=== PATIENT | female | born 1965 | race Caucasian/White ===

== ENCOUNTER → 2021-07-14 | Outpatient (CLI) | payer OTHER ==
[~2021-07-14] MED LIST: REGADENOSON 0.4 MG/5 ML PF SYG IVP SCH
== END | disposition home or self-care (01) ==
LOC: SHCH 08:20 → EDUNIT# 08:30
PROVIDERS: ATTEND Internal Medicine
DX: R06.02 Shortness of breath (principal); R07.9 Chest pain, unspecified
CPT/HCPCS: 78452; 93017; 96374; A9500 ×2; J2785

== ENCOUNTER 2021-09-22 05:53 | Day surgery (SDC) | payer OTHER ==
[2021-09-18 14:43] LABS: BASOPHILS % (AUTO) 0.5 % (0.0-5.0); EOSINOPHILS % (AUTO) 2.6 % (0.0-8.0); HEMATOCRIT 38.9 % (36-48); LYMPHOCYTES % (AUTO) 27.6 % (21.0-51.0); MEAN CORPUSCULAR HEMOGLOBIN 28.6 pg (27.0-33.0); MEAN CORPUSCULAR HGB CONC 31.4 g/dL (32.0-36.0); MEAN CORPUSCULAR VOLUME 91.1 fL (79-99); MONOCYTES % (AUTO) 7.9 % (3.0-13.0); NEUTROPHILS % (AUTO) 61.2 % (40.0-77.0); PLATELET COUNT (AUTO) 322 K/uL (130-400); RED BLOOD CELL COUNT(AUTO) 4.27 MIL/uL (4.00-5.50); RED CELL DISTRIBUTION WIDTH 14.8 % (11.0-15.5); WHITE BLOOD COUNT (AUTO) 9.4 K/uL (4.8-10.8)
[2021-09-18 14:52] LABS: POTASSIUM 3.4 mmol/L (3.5-5.1)
[2021-09-18 14:55] LABS: APPEARANCE,URINE CLEAR (CLEAR); BILIRUBIN,URINE NEGATIVE (NEGATIVE); COLOR,URINE YELLOW (YELLOW); GLUCOSE, URINE (UA) NEGATIVE (NEGATIVE); KETONES,URINE NEGATIVE (NEGATIVE); LEUKOCYTE ESTERASE ,URINE NEGATIVE (NEGATIVE); NITRATE,URINE NEGATIVE (NEGATIVE); OCCULT BLOOD,URINE SMALL (NEGATIVE); PROTEIN,URINE NEGATIVE (NEGATIVE); UROBILINOGEN,URINE 0.2 mg/dL (0.2-1.0)
[2021-09-18 14:55] LABS: INR 1.02 (0.85-1.15); PROTHROMBIN TIME 11.1 SEC (9.6-11.6)
[2021-09-18 14:56] LABS: PARTIAL THROMBOPLASTIN TIME 26.9 SEC (26.3-35.5)
[2021-09-19 11:20] VITALS: BP 119/54
[2021-09-22] VITALS (10 sets, daily range): BP systolic 119–136; BP diastolic 67–84
[~2021-09-22] VITALS: Ht 165.1 cm; Wt 97.1 kg
[~2021-09-22 05:53] MED LIST changes: +AEC81 PO; +ATOR20TA65 PO; +ESOM40CA PO; +LANS30CA53 PO; +METO-391 PO; -REGADENOSON 0.4 MG/5 ML PF SYG IVP SCH; +VALS1TAB77 PO
[2021-09-22] MEDS ORDERED: 0.9%NACL 1000ML 1,000 ML IV ONE (06:11)
[2021-09-22] MEDS ORDERED: IOHEXOL 350 MG/ML 100ML INFUS..BTL IV ONE (07:19)
[2021-09-22] MEDS ORDERED: NITROGLYCERIN 50MG VIAL ONE (07:19)
[2021-09-22] MEDS ORDERED: MIDAZOLAM HCL 1 MG/ML 2ML VIAL ONE (07:19)
[2021-09-22] MEDS ORDERED: HEPARIN 10,000 UNIT/10ML (1,000 UNIT/ML) VIAL ONE (07:19)
[2021-09-22] MEDS ORDERED: LIDOCAINE HCL 400MG/20ML VIAL ONE (07:20)
[2021-09-22] MEDS ORDERED: FENTANYL CITRATE PF 50 MCG/1 ML 2ML VIAL ONE (07:20)
[2021-09-22] MEDS ORDERED: NICARDIPINE 25MG INJ IV ONE (07:31)
[2021-09-22] MEDS ORDERED: NITROGLYCERIN 50MG/D5W 250ML 1 BOT ONE (08:10)
[2021-09-22] MEDS ORDERED: 0.9%NACL 1000ML 1,000 ML IV SCH (09:00)
== END 2021-09-22 13:20 | disposition home or self-care (01) ==
LOC: DAH 05:53
PROVIDERS: ATTEND Internal Medicine
DX: I25.119 Atherosclerotic heart disease of native coronary artery with unspecified angina pectoris (principal); I10 Essential (primary) hypertension; E66.01 Morbid (severe) obesity due to excess calories; E78.5 Hyperlipidemia, unspecified; Z79.01 Long term (current) use of anticoagulants; Z79.899 Other long term (current) drug therapy; Z79.82 Long term (current) use of aspirin; Z82.49 Family history of ischemic heart disease and other diseases of the circulatory system; Z68.35 Body mass index [BMI] 35.0-35.9, adult
CPT/HCPCS: 36415 ×2; 71045; 80048; 81003; 83880; 85025; 85610; 85730; 93005; 93458; A4215; A4216; A4221; A4222; A4223 ×3; A4606; A4663; C1769; C1894 ×2; J1644 ×2; J2250; J3010; J3490 ×4; J7030; Q9965; Q9967; 99156; 99157